=== PATIENT | female | born 1930 | race Caucasian/White ===

== ENCOUNTER 2016-07-23 23:00 | Inpatient (IN) | payer OTHER ==
[~2016-07-23] VITALS: Ht 154.9 cm; Wt 58.3 kg
[2016-07-23 23:47] LABS: ADD MIUA? YES; BILIRUBIN NEGATIVE; BLOOD LARGE; COLOR YELLOW ((YELLOW)); GLUCOSE (STRIP) NEGATIVE; KETONES NEGATIVE; LEUKOCYTES NEGATIVE; NITRITE POSITIVE; PROTEIN (STRIP) >=300; SPECIFIC GRAVITY 1.021 (1.000-1.030)
[2016-07-24 00:06] LABS: EOSINOPHIL (%) 0 % (0-5); HEMATOCRIT 40.1 % (36.0-46.0); IMMATURE GRANULOCYTE (%) 0.2 % (0.0-0.7); IMMATURE GRANULOCYTE COUNT 0.3 K/uL; MCH 29.5 PG (29.0-34.0); MCHC 34.9 G/DL (30.0-36.0); MCV 84.4 FL (83-99); MEAN PLAT.VOLUME 10.1 uM^3 (9.5-12.4); MONOCYTE (%) 9.4 % (3-12); MONOCYTE COUNT 1.3 K/uL (0-0.8); NEUTROPHIL (%) 82.9 % (45-76); NEUTROPHIL COUNT 11.1 K/uL (1.8-6.4); PLATELET COUNT 199 K/uL (156-360); RBC DIS.WIDTH-CV 13.3 % (11.8-14.6); RED BLOOD COUNT 4.75 M/uL (3.80-5.20); WHITE BLOOD COUNT 13.4 K/uL (4.1-10.2)
[2016-07-24 00:15] LABS: CHLORIDE 96 mEq/L (99-109); POTASSIUM 3.6 mEq/L (3.7-5.4); SODIUM 127 mEq/L (136-147)
[2016-07-24 00:18] LABS: GLUCOSE 151 mg/dL (70-99)
[2016-07-24 00:19] LABS: ANION GAP 13 MEQ/L (2-14)
[2016-07-24 00:20] LABS: TOTAL BILIRUBIN 0.8 mg/dL (0.0-1.0)
[2016-07-24 00:21] LABS: ALKALINE PHOSPHATASE 89 IU/L (3-129)
[2016-07-24 00:22] LABS: GFR ESTIMATE (CALCULATED) 45 mL/min/
[2016-07-24 00:23] LABS: DIRECT BILIRUBIN 0.4 mg/dL (0.0-0.3); UREA NITROGEN (BUN) 19 mg/dL (9-23)
[2016-07-24 00:25] LABS: LIPASE 23 U/L (1.0-51.0)
[2016-07-24 00:27] LABS: TROP-I INTERPRETATION NEGATIVE; TROPONIN-I 0.02 ng/mL (0.0-0.30)
[2016-07-24 00:36] LABS: BACTERIA 3+; EPITHELIAL CELLS 1+; RED BLOOD CELLS 20-30 /HPF (0-5); UCUL ADDED? YES
[2016-07-24 00:37] LABS: CASTS PRESENT /LPF; CRYSTALS NONE SEEN; HYALINE CASTS 0-5 /LPF; MUCUS 2+
[2016-07-24 00:56] LABS: INTER. NORMALIZED RATIO 1.2; PROTHROMBIN TIME 11.9 (9.2-11.2); PTT 32.7 (25-32)
[2016-07-24] MEDS ORDERED: ZOLOFT100 MG PO (04:08)
[2016-07-24] MEDS ORDERED: NEURONTIN100 MG PO (04:09)
[2016-07-24] MEDS ORDERED: NAMENDA10 MG PO (04:10)
[2016-07-24] MEDS ORDERED: TOPROL XL25 MG PO (05:02)
[2016-07-24] MEDS ORDERED: ARICEPT10 MG PO (05:12)
[2016-07-24 06:41] LABS: EOSINOPHIL (%) 0.3 % (0-5); HEMATOCRIT 37.1 % (36.0-46.0); IMMATURE GRANULOCYTE (%) 0.3 % (0.0-0.7); IMMATURE GRANULOCYTE COUNT 0.3 K/uL; LYMPHOCYTE COUNT 1.5 K/uL (1.0-2.8); MCH 29.4 PG (29.0-34.0); MCHC 34.5 G/DL (30.0-36.0); MCV 85.1 FL (83-99); MEAN PLAT.VOLUME 10.1 uM^3 (9.5-12.4); MONOCYTE (%) 11.1 % (3-12); MONOCYTE COUNT 1.3 K/uL (0-0.8); NEUTROPHIL (%) 75.4 % (45-76); NEUTROPHIL COUNT 8.7 K/uL (1.8-6.4); PLATELET COUNT 181 K/uL (156-360); RBC DIS.WIDTH-CV 13.3 % (11.8-14.6); RBC DIS.WIDTH-SD 40.4 % (39-53); RED BLOOD COUNT 4.36 M/uL (3.80-5.20); WHITE BLOOD COUNT 11.5 K/uL (4.1-10.2)
[2016-07-24 06:52] LABS: CHLORIDE 101 mEq/L (99-109); POTASSIUM 3.6 mEq/L (3.7-5.4)
[2016-07-24 06:53] LABS: MAGNESIUM 1.4 mg/dL (1.3-2.7)
[2016-07-24 06:54] LABS: GLUCOSE 117 mg/dL (70-99); SODIUM 134 mEq/L (136-147)
[2016-07-24 06:55] LABS: ANION GAP 11 MEQ/L (2-14)
[2016-07-24 06:58] LABS: GFR ESTIMATE (CALCULATED) 56 mL/min/
[2016-07-24 06:59] LABS: UREA NITROGEN (BUN) 17 mg/dL (9-23)
[2016-07-24 07:05] LABS: Estimated Average Glucose 103 mg/dL (70-123); HEMOGLOBIN A1c (GLYCOHEMOGLOB) 5.2 % HGB (Below 5.7)
[2016-07-24 07:06] LABS: TROP-I INTERPRETATION NEGATIVE; TROPONIN-I 0.03 ng/mL (0.0-0.30)
[2016-07-24 12:04] LABS: POINT-OF-CARE METER ID UU13113702
[2016-07-24 12:43] LABS: TROP-I INTERPRETATION NEGATIVE; TROPONIN-I 0.04 ng/mL (0.0-0.30)
[2016-07-24 14:05] VITALS: BP 187/90
[2016-07-24 20:12] VITALS: BP 168/82
[2016-07-25] VITALS (7 sets, daily range): BP systolic 148–200; BP diastolic 80–90
[2016-07-25 07:07] LABS: POINT-OF-CARE METER ID UU14174225
[2016-07-25 07:51] LABS: POINT-OF-CARE METER ID UU14174225
[2016-07-26 00:27] VITALS: BP 178/76
[2016-07-26 04:12] VITALS: BP 168/78
[2016-07-26 09:46] LABS: MCH 29.6 PG (29.0-34.0); MCHC 34.3 G/DL (30.0-36.0); MCV 86.4 FL (83-99); PLATELET COUNT 184 K/uL (156-360); RBC DIS.WIDTH-CV 13.4 % (11.8-14.6); RBC DIS.WIDTH-SD 42.3 % (39-53); RED BLOOD COUNT 4.05 M/uL (3.80-5.20)
[2016-07-26 09:51] LABS: ANION GAP 12 MEQ/L (2-14); CHLORIDE 98 MEQ/L (99-109); GFR ESTIMATE (CALCULATED) > 59 mL/min/; GLUCOSE 94 mg/dL (70-99); POTASSIUM 3.4 MEQ/L (3.7-5.4); SAMPLE HEMOLYSIS CHECK 1; SAMPLE ICTERIC CHECK 0; SAMPLE LIPEMIA CHECK 0; SODIUM 132 MEQ/L (136-147); UREA NITROGEN (BUN) 12 mg/dL (9-23)
[2016-07-26 12:49] VITALS: BP 198/99
[2016-07-26 16:37] VITALS: BP 189/79
[2016-07-26 17:22] VITALS: BP 172/88
[2016-07-26 19:48] VITALS: BP 162/76
[2016-07-27] VITALS (7 sets, daily range): BP systolic 158–189; BP diastolic 69–84
[2016-07-28 00:14] VITALS: BP 179/76
[2016-07-28 04:27] VITALS: BP 169/81
[2016-07-28 08:02] VITALS: BP 165/84
[2016-07-28 11:03] VITALS: BP 163/72
[2016-07-28] MEDS ORDERED: AMLODIPINE BESY10 MG PO (14:48)
[2016-07-28] MEDS ORDERED: LO-DOSE ASPIRIN81 M2 PO (14:49)
== END 2016-07-28 15:54 | disposition home health service (06) | DRG 690 ==
LOC: EME → EDBD 23:00 → 5SOUTH 07-24 01:28 → EDOF 07-24 01:28 → 5SOUTH 07-24 13:50
PROVIDERS: Emergency Medicine; Hospitalist; Internal Medicine; Internal Medicine Critical Care Medicine; Physician Assistant; Physician Assistant Medical
DX: N30.00 Acute cystitis without hematuria (principal); E87.1 Hypo-osmolality and hyponatremia; R47.01 Aphasia; G30.9 Alzheimer's disease, unspecified; F02.80 Dementia in other diseases classified elsewhere, unspecified severity, without behavioral disturbance, psychotic disturbance, mood disturbance, and anxiety; E86.0 Dehydration; R65.10 Systemic inflammatory response syndrome (SIRS) of non-infectious origin without acute organ dysfunction; N18.3 Chronic kidney disease, stage 3 (moderate); I16.0 Hypertensive urgency; R94.31 Abnormal electrocardiogram [ECG] [EKG]; I12.9 Hypertensive chronic kidney disease with stage 1 through stage 4 chronic kidney disease, or unspecified chronic kidney disease; R41.82 Altered mental status, unspecified; B96.20 Unspecified Escherichia coli [E. coli] as the cause of diseases classified elsewhere
CPT/HCPCS: 70450; 70551; 71010; 80048; 80053; 81003; 82248; 82948; 83036; 83605; 83690; 83735; 84484; 85025; 85027; 85610; 85730; 87040; 87077; 87086; 87186; 92610 GN; 93005; 99281; 99285; J0360; J0696; J1644; J1815; J2060; J2543; J3370; J7050; J7120